=== PATIENT | male | born 1955 | race Two or more races ===

== ENCOUNTER 2021-01-30 10:57 | Emergency (ER) | payer OTHER ==
[~2021-01-30] VITALS: Ht 167.6 cm; Wt 74.4 kg
[2021-01-30] MEDS ORDERED: PANTOPRAZOLE SO40 MG PO (11:35)
[2021-01-30] MEDS ORDERED: LEVO-T25 MCG PO (11:36)
[2021-01-30] MEDS ORDERED: [UNRECOGNIZED DRUG - CODE] IM (14:00)
[2021-01-30] MEDS ORDERED: ZITHROMAX500 MG PO (14:00)
== END 2021-01-30 14:08 | disposition home or self-care (01) ==
LOC: ER 10:57
DX: A52.76 Other genitourinary symptomatic late syphilis (principal)